=== PATIENT | female | born 1965 | race Caucasian/White ===

== ENCOUNTER 2025-01-09 21:44 | Emergency (ER) | payer BC, OTHER ==
[2025-01-09] MEDS: Ketorolac 30 MG/ML SDV IM ONE (23:51)
[2025-01-10 01:24] VITALS: BP 127/67; PULSE 81
== END 2025-01-10 01:23 | disposition home or self-care (01) ==
LOC: MW.ED 21:44
DX: M25.562 Pain in left knee (principal); M79.652 Pain in left thigh; Z88.8 Allergy status to other drugs, medicaments and biological substances; Z79.899 Other long term (current) drug therapy
CPT/HCPCS: 73552; 73562; 96372; 99283; J1885